=== PATIENT | male | born 1985 | race Caucasian/White ===

== ENCOUNTER 2024-08-31 18:47 | Emergency (ER) | payer BC, SELFPAY ==
[2024-08-31 18:51] VITALS: BP 136/84
[2024-08-31 19:18] LABS: % Basophils 0.3 % (0-2); % Eosinophils 0.6 % (0-6); % Immature Granulocytes 0.1 % (0-0.5); % Lymphocytes 26.9 % (20.5-51.1); % Monocytes 5.9 % (1.7-9.3); % Neutrophils 66.2 % (42.2-75.2); Absolute Eosinophils 0.1 10^3/uL (0-0.7); Absolute Lymphocytes 2.3 10^3/uL (1.2-3.4); Absolute Monocytes 0.5 10^3/uL (0.1-0.6); Absolute Neutrophils 5.7 10^3/uL (1.4-6.5); Hematocrit 42.4 % (39.0-52.0); Hemoglobin 14.3 g/dL (13.0-18.0); Mean Corp Hgb Conc. 33.7 g/dL (33.0-37.0); Mean Corpuscular Hgb 29.2 pg (27.0-31.0); Mean Corpuscular Volume 86.7 fL (80.0-94.0); Mean Platelet Volume 10.3 fL (7.4-10.4); Nucleated Red Blood Cells % 0 % (-); Platelet Count 160 10^3/uL (130-400); Red Blood Cell Count 4.89 10^6/uL (4.70-6.10); Red Cell Dist. Width 13.7 % (11.5-14.5); White Blood Cell Count 8.6 10^3/uL (4.8-10.8)
[2024-08-31 19:33] LABS: ALT (SGPT) 71 U/L (0-50); AST (SGOT) 47 U/L (17-59); Alkaline Phosphatase 57 U/L (38-126); Blood Urea Nitrogen 17 mg/dl (9-20); Carbon Dioxide 27 mmol/L (22-30); Chloride 104 mmol/L (98-107); Glucose 109 mg/dl (70-99); Potassium 3.7 mmol/L (3.5-5.1); Sodium 138 mmol/L (135-145); Total Bilirubin 0.6 mg/dl (0.2-1.3); Total Protein 6.2 g/dl (6.3-8.2); eGFR > 60.00
[2024-08-31 19:45] LABS: Troponin I < 0.012 ng/ml
[2024-08-31 20:34] VITALS: BMI 25.7
[2024-08-31 20:36] VITALS: BP 121/77
--- NOTE | 2024-08-31 20:41 | ED.GENMED ---
History of Present Illness
General
Chief Complaint: Chest Pain
Source: patient
Exam Limitations: none
Time Seen by Provider: 08/31/24 20:03
Nursing documentation reviewed up to this point in time: agreed with
History of Present Illness
History of Present Illness:
Patient is a 39-year-old male presenting to the emergency department for evaluation of transient tingling in left hand earlier today. Patient states that he was driving to work around 430 this morning when he had a pins and needle sensation in his
left fifth digit which was shortly followed by acute shortness of breath. The symptoms lasted about 30 seconds to 1 minute and then resolved. 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 He did report
one moment throughout the day where he felt slightly winded. Patient has remained asymptomatic throughout the day although after speaking to his parents they recommended he come to the emergency department for evaluation given significant family
history of cardiovascular disease.
Patient denies any chest pain, shortness of breath currently. Symptoms were not associated with back pain, dizziness, numbness/tingling. Patient denies any abdominal pain, diaphoresis, or vomiting.
Review of Systems
Review of Systems
Allergies reviewed?: Yes
All Other Systems: ROS reviewed and negative except as documented in HPI and ROS
Phy Exam
Physical Exam
Physical Exam:
Vitals: Patient's vital signs are stable. Afebrile
General: Patient is well appearing, no acute distress
Skin: Warm and dry, no rashes or lesions
Head: Normocephalic, atraumatic
Eyes: Sclera nonicteric. EOMs intact. No nystagmus.
Throat: Protecting airway
Neck: Normal ROM, no cervical spine tenderness, no meningismus
Cardiac: Regular rate and rhythm, no murmurs.
Pulm: Normal respiratory effort, no wheezes, rales, rhonchi heard on exam.
Abdomen: Abdomen soft and nontender.
Extremities: No evidence of cyanosis or edema. 2+ radial pulses bilaterally
Neuro: AAOx3. Grossly intact. Sensation fully intact
Psychiatric: Normal affect.
Scores
Heart Score for Chest Pain Patients
STEMI patient?: Not applicable
PERC Rule Criteria
Age <50 years: Yes
HR <100 bpm: Yes
Room air oxygen sat >94%: Yes
History of DVT or PE: No
Recent trauma or surgery: No
Hemoptysis: No
Exogenous estrogen: No
Clinical signs suggestive of DVT: No
: No
Considered low risk for PE: Yes
PERC Score: 0
PE can be excluded by PERC: Yes
Course
Orders/Labs/Results
Orders:
Orders
08/31/24 18:47
Electrocardiogram (*1) Urgent
Reason for Study: Chest Pain
EKG- Treatment ONCE
08/31/24 19:01
Complete Blood Count/With Diff Urgent
Comprehensive Metabolic Panel Urgent
Troponin I Urgent
08/31/24 20:01
CR Chest - 2 Views Urgent
Comment:
Reason For Exam: CP
Abnormal Lab Results
08/31/24
19:01
Glucose 109 H mg/dl
(70-99)
ALT 71 H U/L
(0-50)
Total Protein 6.2 L g/dl
(6.3-8.2)
08/31/24 19:01
08/31/24 19:01
Vital Signs
Initial and Last Documented VS:
Initial Vital Signs
Temp Pulse Resp BP Pulse Ox
98.2 F 76 16 136/84 99
08/31/24 18:51 08/31/24 18:51 08/31/24 18:51 08/31/24 18:51 08/31/24 18:51
Last Documented Vital Signs
Temp Pulse Resp BP Pulse Ox
98.2 F 78 18 121/77 97
08/31/24 18:51 08/31/24 20:36 08/31/24 20:36 08/31/24 20:36 08/31/24 20:36
MDM/Problems Addressed
Differential Diagnosis Includes:
Not limited to: Neuropathy, panic attack, muscular strain, pneumothorax, ACS, etc.
MDM/Problems Addressed:
39 year old male presenting after brief episode of tingling in his left fifth digit associated with shortness of breath > 12 hours prior to arrival. There was no associated chest pain, back pain. Patient was able to complete full day of
labor-intensive job prior to presenting to ED for evaluation. Patient asymptomatic at time of evaluation. Patient has stable vital signs on arrival. EKG obtained in triage shows NSR without acute ischemic changes. No clinically significant
abnormalities on laboratory analysis. Troponin undetectable and given it has been >12 hours since symptom onset feel this is sufficient to rule out acute OK. CXR without abnormal finidngs.
Workup in ED unremarkable including EKG, labwork, troponin, and CXR. Patient PERC negative with otherwise very low suspicion for PE. Patient has remained normotensive with palpable and equal radial pulses and no evidence of widened mediastinum on
CXR - do not suspect aortic dissection. Ultiamtely - very low suspicion for acute cardiac/pulmonary process. Do not suspect central process. Neuropathy vs panic attack would remain on possible differential. Patient remains hemodynamically stable and
asymptomatic in ED. Feel stable for discharge home with PCP follow-up. Will provide cardiology referral given significant fam hx of cardiac disease. Strict return precautions discussed.
Chronic conditions affecting care:
N/A
Acute Exacerbation and/or Progression of Chronic Illness:
N/A
*Radiology
Radiology exam reviewed: preliminary read by ED provider (Chest x-ray reviewed by me-no acute abnormalities, no widened mediastinum) and radiology read reviewed
*Pulse Oximetry
Patient hypoxic: no
*EKG
Interpreted by ED Provider?: Yes
EKG Intrepretation Date: 08/31/24
Interpretation: normal
Comparison EKG: no comparison EKG present
Heart Rate: 76
Rate: normal
Rhythm: sinus and sinus arrhythmia
[place]: normal axis
Interval: normal interval
QRS Pattern: normal QRS
Ischemia: no ischemia
*Event Staff Member Interpretation
Rate: Event Staff Member- N/A
*Critical Care Note
Total Time (30-74mins, 75-104mins- exclusive of procedures): Not Applicable
ED Attending Note
-
Portions of this chart may have been created with voice recognition software.� Occasional wrong word or��sound alike� substitutions may have occurred due to the inherent limitations of voice recognition software.
Discharge Plan
Departure
Patient Disposition: Home (Routine Discharge)
Date of Disposition: 08/31/24
Time of Disposition: 21:15
Patient with high blood pressure during this ER visit?: No
Condition: Good
Covid-19: Not Applicable
Discharge Problem:
Arm pain, left, Shortness of breath
Instructions: Shortness of breath in adults - ED discharge instructions, Chest Pain PCP Follow Up
Prescriptions:
No Action
buprenorphine-naloxone [Suboxone] 8-2 mg Film
1 film BUCCAL DAILY
Referrals:
Hilario Jones MD [Active] - Next open appointment
Activity Restrictions/Additional Instructions:
Return to the emergency department with any shortness of breath/difficulty breathing, chest pain worsens exertion or associated lightheadedness/dizziness/numbness/tingling, or any other concerns
-As discussed your EKG, lab work and chest x-ray showed no acute abnormalities today.
-One of your liver function tests was mildly elevated today. You should have this repeated with your primary care to ensure trending down
-It is important stay well-hydrated and get plenty of rest.
-As discussed�you should follow-up with cardiology for further evaluation/management given your significant family history of cardiac disease. The contact information for a lube man has been provided for you above
Monitor your symptoms closely and return to the emergency department with any acute worsening/new symptoms or any other concerns
Interventions
Interventions:
*Risk Screen - Suicide Last Done: 08/31/24 18:51
*General Assessment Last Done: 08/31/24 20:35
*Neglect/Abuse Screening Last Done: 08/31/24 18:51
*ED COVID-19 Vaccine History Last Done: 08/31/24 20:35
*Nursing Disposition Last Done: 08/31/24 21:27
ED- Cardiac Assessment Last Done: 08/31/24 21:02
Discharge Date and Time
Discharge Date/Time: 08/31/24 21:28
Print Language: PERSIAN
== END 2024-08-31 21:28 | disposition home or self-care (01) ==
LOC: EMR 18:47
PROVIDERS: Emergency Medicine; EMERGENCY PHYSICIAN Student in an Organized Health Care Education/Training Program
DX: M79.602 Pain in left arm (principal); R06.02 Shortness of breath; R20.2 Paresthesia of skin
CPT/HCPCS: 99285; 71046; 80053; 84484; 85025; 93005